=== PATIENT | female | born 1975 | race Two or more races ===

== ENCOUNTER 2022-01-25 14:49 | Outpatient (REF) | payer OTHER, SELFPAY ==
--- NOTE | ~2022-01-25 | MM_ITS ---
EXAMINATION: MM SCREENING DIGITAL BREAST TOMOSYNTHESIS, BILATERAL CLINICAL INFORMATION: Screening. Asymptomatic. The lifetime risk of breast cancer based on the Tyrer-Cuzick Model is 8%. COMPARISON: Mammography: 03/02/2018 (baseline) TECHNIQUE: Digital breast tomosynthesis is performed in both the craniocaudal and mediolateral oblique views along with computer-aided detection (CAD). Synthesized 2D images are generated from the tomosynthesis. FINDINGS: There are scattered areas of fibroglandular density (ACR BI-RADS breast composition Category b). There are no significant masses, abnormal calcifications, or other abnormalities. No significant changes from prior baseline exam. The axilla and skin contours are unremarkable. MM/MM tomosynthesis screening BI IMPRESSION: No mammographic evidence of malignancy. ASSESSMENT: BI-RADS 1: Negative RECOMMENDATION: Routine annual mammography screening. This patient's information was entered into a reminder system with a target due date for their next mammogram.
== END 2022-01-25 14:50 | disposition home or self-care (01) ==
LOC: HO.MAMMO 14:49
PROVIDERS: PCP Internal Medicine; Visit Provider Nurse Practitioner Family
DX: Z12.31 Encounter for screening mammogram for malignant neoplasm of breast (principal)
CPT/HCPCS: 77063; 77067

== ENCOUNTER 2023-01-11 13:01 | Emergency (ER) | payer OTHER, SELFPAY ==
--- NOTE | ~2023-01-11 | XR_ITS ---
EXAMINATION: XR SHOULDER, RIGHT CLINICAL INFORMATION: Right shoulder pain COMPARISON: None available. TECHNIQUE: AP external rotation, Grashey, scapular Y, and axillary views of the right shoulder. FINDINGS: There is osseous spurring and subchondral cystic change in the greater tuberosity suggestive of an arthritic process. No fracture, dislocation or destructive lesion. The glenohumeral joint appears preserved. XR/XR shoulder RT min 2V IMPRESSION: Degenerative spurring seen at the insertion of the supraspinatus tendon.
[2023-01-11 13:10] VITALS: BP 152/94; PULSE 103; RESP 18; TEMP 36.7; O2SAT 100; BMI 36.8
--- NOTE | 2023-01-11 13:10 | ECG_ITS ---
Test Reason : shoulder pain Blood Pressure : / mmHG Vent. Rate : 089 BPM Atrial Rate : 089 BPM P-R Int : 146 ms QRS Dur : 086 ms QT Int : 358 ms P-R-T Axes : 044 026 024 degrees QTc Int : 435 ms Normal sinus rhythm Normal ECG No previous ECGs available Referred By: Peyton Michele Electronically Signed By:ANICETO DELUNA MD
--- NOTE | 2023-01-11 13:10 | ED_ITS ---
HPI - Extremity Injury (Upper) General Chief Complaint: Neck Pain/Injury Stated Complaint: Right shoulder/arm pain Time Seen by Provider: 01/11/23 13:16 Source: patient, family and diplomatic interpreter/translator Mode of arrival: ambulatory Limitations: no limitations History of Present Illness HPI narrative: 47-year-old female with pmhx significant for GERD presents to the ED today for evaluation of right neck and shoulder pain x1 day upon returning home from work yesterday. Pain now radiating down her right arm. 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 Rates pain intensity 7/10. Pain is exacerbated with movement of the RUE. Took Motrin with minimal relief, last dose last night. Denies injury/ fall/ trauma. Reports similar symptoms years ago in her left neck/shoulder that have resolved w/ meds. Denies fever/chills, diaphoresis, vision changes, MCMAHAN, dizziness, back pain, chest pain, SOB, numbness/tingling/weakness to the UEs. Denies saddle anesthesia or bowel/bladder incontinence or retention. Denies IVDU. Related Data Home Medications Medication Instructions Recorded Confirmed omeprazole 20 mg capsule,delayed 20 mg PO DAILY 01/04/22 01/04/22 release Previous Rx's Medication Instructions Recorded lidocaine 5 % topical patch 1 patch topical DAILY #15 ea 01/11/23 (Lidoderm) naproxen 500 mg tablet 500 mg PO Q8-12H PRN pain (scale 01/11/23 score 4-6) #20 tabs prednisone 50 mg tablet 50 mg PO DAILY 5 days #5 tabs 01/11/23 Allergies Allergy/AdvReac Type Severity Reaction Status Date / Time No Known Allergies Allergy Verified 01/11/23 13:13 Review of Systems Review of Systems: Constitutional: No fever, chills, fatigue, night sweats, weight changes ENT/Mouth: No ear pain, hearing loss, nasal congestion, sinus pain, rhinorrhea, sore throat Eyes: No eye pain, swelling, redness, vision changes, discharge Cardio: No chest pain, palpitations, KISER, orthopnea, peripheral edema Pulm: No SOB, cough, sputum, wheezing, dyspnea, hemoptysis GI: No nausea, vomiting, hematemesis, abdominal pain, diarrhea, constipation, hematochezia, melena : No irregular bleeding, dysuria, frequency, urgency, hesitancy, hematuria, flank pain, urinary flow changes, urinary incontinence or retention MSK: No back pain, joint pain, myalgias, + right neck and shoulder pain Skin: No lesions, rashes Neuro: No weakness, numbness, paresthesias, LOC, dizziness, headache All other systems reviewed and are negative. [facility] Past Medical History Attestation statement: The following information was validated with the patient. Source: old records reviewed and nursing notes reviewed Surgical History History of excision of mass Family History Family History Father No problems noted. Mother Diabetes Hypertension Sister In good health Son In good health Daughter In good health Social History Social History Housing: House Patient Tobacco Use Status: Never used Tobacco Advance Directives: No Advance Directives Information Provided: Yes service: No Current occupational status: employed Cognitive needs: No Hearing needs: No Vision needs: Yes Physical Exam Vital Signs: Vital Signs: Last Vital Signs Temp 98.1 F 01/11/23 13:10 Pulse 103 H 01/11/23 13:10 Resp 18 01/11/23 13:10 BP 152/94 H 01/11/23 13:10 Pulse Ox 100 01/11/23 13:10 O2 Del Method Room Air 01/11/23 13:10 BMI result Body Mass Index 36.8 Const: General: cooperative, comfortable, no acute distress, alert and awake Nutritional Appearance: obese Orientation/consciousness: patient oriented x3 Limitations: no limitations HEENT: Head: Yes normal to inspection Ears: hearing grossly normal bilaterally Eyes: General: appearance normal, both eyes and all related structures Conjunctivae: conjunctivae normal Sclerae: sclerae normal Pupils: Equal, round and reactive pupils present Neck: Other: + tenderness to palpation over the right cervical paraspinal muscles and right trapezius muscle. No midline cervical spinous tenderness or step-off deformity. Full ROM intact to C-spine. Neck: Yes normal visual inspection, Yes no lymphadenopathy and Yes no meningeal signs Resp: Effort & Inspection: normal respiratory effort and able to speak in complete sentences Auscultation: clear to auscultation bilaterally Cardio: Jugular venous distension: no JVD Rate: regular rate Rhythm: regular rhythm Peripheral pulses: radial pulses present and dorsalis pedis present GI: Inspection: Yes normal to inspection Back/Spine/Pelvis: Other: No midline spinous tenderness. No thoracic or lumbar paraspinal tenderness to palpation. No step-off deformity. Skin: General skin exam: no rashes or lesions noted Neuro: Other: Strength 5/5 intact throughout.?No saddle anesthesia.?Sensation intact to light touch.?Neurovascular intact distally.? General: patient oriented x3, gait normal, moves all extremities and no meningeal signs Cranial nerves: Yes CN's II-XII intact bilaterally and Yes Equal, round and reactive pupils present Extrem: Other: + full ROM intact to right shoulder, elb ow, wrist. There is pain upon adduction and abduction of right shoulder. No palpable deformity or step off. General: Yes normal to inspection and Yes full ROM Course Course Course Narrative: RME: 47yo F w/PMHx GERD, c/o right sided neck pain radiating to right shoulder and down RLE x yesterday. 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 denies weakness, CP/SOB +R trapezius and shoulder ttp. +pain w/ROM to R shoulder. Pulses WNL b/l UE EKG & XR ordered Full HPI, ROS and PE to be performed by primary ED provider. Medications Administered Discontinued Medications Generic Name Dose Route Start Last Admin Trade Name Freq PRN Reason Stop Dose Admin Diazepam 2 mg 01/11/23 13:41 01/11/23 13:49 Diazepam 2 Mg Tablet PO 01/11/23 13:42 2 mg ONCE ONE Administration Lidocaine 1 patch 01/11/23 13:41 01/11/23 13:49 Lidocaine 4 % Patch Adh..Patch TRANSDERMA 01/11/23 13:42 1 patch ONCE ONE Administration Protocol Medical Decision Making Medical Decision Making MDM Narrative: 47-year-old female with pmhx significant for GERD presents to the ED today for evaluation of right neck and shoulder pain x1 day upon returning home from work yesterday. Patient is nontoxic appearing and in NAD. On exam, there is tenderness to palpation over the right cervical paraspinal muscles and right trapezius muscle. No midline spinous tenderness or step-off deformity. Full ROM intact to C-spine. Full ROM intact to right shoulder, elbow, wrist. There is pain upon adduction and abduction of right shoulder. No palpable deformity or step off. Ambulating with steady gait. NV intact distally. Clinical concern for MSK sprain/strain, torticollis, fracture, subluxation, dislocation, tendinitis, osteoarthritis, cervical radiculopathy. Unlikely rotator cuff injury, threat to limb, cord compression. Right shoulder xray ordered in triage. Plan for pain control, imaging review and re-evaluation. Differential Diagnosis Differential Diagnoses: The differential diagnosis associated with the presentation includes As above. Admission/Observation Not indicated. Independent Interpretation I performed an independent interpretation of an: EKG and Plain X-Ray Interpretation: EKG showing normal sinus rhythm with a rate of 89 beats per minute, QT 358, QTC 435, no acute ischemic changes or ST elevations. XR right shoulder without acute fracture or dislocation, agree with radiologist's interpretation. Radiology Impression Discussion of test interpretation with radiology: I have reviewed the radiologist's reading. Radiologist Impression: XR shoulder RT min 2V IMPRESSION: Degenerative spurring seen at the insertion of the supraspinatus tendon. Independent Historian Clinical information obtained from an independent historian. History obtained from or confirmed by: Spouse External Record Review External record reviewed: Inpatient record Prescription Management I considered prescription management with: Pain Medication Critical Care Time Critical Care Time Critical Care Time: No Discharge Plan Discharge Clinical Impression: Arthritis of shoulder region, right Patient Disposition: Home, Self-Care Instructions: Osteoarthritis (ED) Additional Instructions: The xray of your right shoulder showed degenerative arthritic changes within the shoulder. This is likely the cause of your pain. The treatment for this is pain control and ortho follow up. Naproxen is an anti-inflammatory that has been sent to your pharmacy. Take this as needed for pain control. To not take this medication with other anti-inflammatories such as ibuprofen as this may increase risk of GI bleed. Lidoderm patches have been sent to your pharmacy. You may apply these to her shoulder to help with pain control. Prednisone as a steroid that has been sent to your pharmacy. Take this over the next 5 days to help with inflammation. A referral to an orthopedic doctor has been provided to you. You may call them to make an appointment. They will not call you. Additionally follow-up with your primary care provider as needed. If her symptoms persist or worsen, return to the emergency department. In the case of an emergency call 911. La radiograf?a de cruz hombro derecho mostr? cambios artr?ticos degenerativos dentro del hombro. Probablemente esta sea la causa de cruz dolor. El tratamiento para esto es el control del dolor y el seguimiento ortop?dico. El naproxeno es un antiinflamatorio que le mcdowell enviado a cruz farmacia. T?hess seg?n sea necesario para controlar el dolor. No lorena gucci medicamento con otros antiinflamatorios vivian el ibuprofeno, ya que puede aumentar el riesgo de hemorragia gastrointestinal. Los parches de Lidoderm mcdowell sido enviados a cruz farmacia. Puede aplicarlos en cruz hombro para ayudar a controlar el dolor. Prednisona vivian esteroide que mcmahan sido enviada a cruz farmacia. T?hess moe los pr?ximos 5 d?as para ayudar con la inflamaci?n. Se le mcmahan proporcionado hanane derivaci?n a un m?dico ortop?dico. Puede llamarlos para programar hanane tamara. No te llamar?n. Adem?s, gisel un seguimiento con cruz proveedor de atenci?n primaria seg?n sea necesario. Si goran s?ntomas persisten o empeoran, regrese al departamento de emergencias. En corina de emergencia llame al 911. Prescriptions: New naproxen 500 mg tablet 500 mg PO Q8-12H PRN (Reason: pain (scale score 4-6)) Qty: 20 0RF prednisone 50 mg tablet 50 mg PO DAILY 5 Days Qty: 5 0RF lidocaine [Lidoderm] 5 % adhesive patch,medicated 1 patch topical DAILY Qty: 15 0RF Rx Instructions: leave on most painful area for up to 12 hrs No Action omeprazole 20 mg capsule,delayed release(DR/EC) 20 mg PO DAILY Referrals: [facility] [Provider Group] Stand Alone Forms: Work/School Release Interventions: ED Discharge Assessment Last Done: 01/11/23 15:21 Discharge Date/Time: 01/11/23 15:23
[2023-01-11] MEDS: diazePAM 2 MG TABLET PO (13:49)
[2023-01-11] MEDS: Lidocaine 4 % Patch ADH..PATCH 1 PATCH TRANSDERMA (13:49)
--- NOTE | 2023-01-11 15:21 | PC.NURSE ---
pt verbalized improvement in pain after medication/lidocaine patch.
== END 2023-01-11 15:23 | disposition home or self-care (01) ==
PROVIDERS: Emergency Provider Emergency Medicine; PCP Internal Medicine
DX: M19.011 Primary osteoarthritis, right shoulder (principal); M54.2 Cervicalgia; M25.511 Pain in right shoulder; Z79.899 Other long term (current) drug therapy
CPT/HCPCS: 73030; 93005; 99283

== ENCOUNTER 2023-01-25 09:52 | Outpatient (AMB) | payer OTHER, SELFPAY ==
--- NOTE | 2023-01-25 09:57 | A.OFFVIS_ITS ---
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 She states that her pain has gotten a little worse worse this past week. Patient reports she was prescribed lidocaine patches which don't provide her with relief. 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 She states she has intermittent pain in her right shoulder which has been a bit worse since last week. Her pain is aggravated with activities lifting. She denies any pain at night. She was prescribed lidocaine patches which did not provide her any relief. 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 She does not have a history of diabetes. [facility] Surgical History History of excision of mass Family History Father No problems noted. Mother Diabetes Hypertension Sister In good health Son In good health Daughter In good health Social History Housing: House Patient Tobacco Use Status: Never used Tobacco service: No Current occupational status: employed Cognitive needs: No Hearing needs: No Vision needs: Yes Review of Systems Const All systems reviewed & are unremarkable except as noted in HPI and below Physical Exam Vital Signs: BMI result Body Mass Index 36.6 Const General: cooperative, healthy appearing, comfortable, no acute distress, well developed and alert Orientation/consciousness: patient oriented x3 HEENT Head: Yes normal to inspection, Yes normocephalic and Yes atraumatic Eyes General: appearance normal, both eyes and all related structures Resp Effort & Inspection: normal respiratory effort and able to speak in complete sentences Cardio Rate: regular rate Peripheral pulses: Peripheral pulses 2+ throughout GI Palpation (GI): Soft to palpation Skin Lesions: no lesions Rashes: no rashes Neuro General: patient oriented x3 Extrem Other: Right shoulder normal to inspection. Tenderness over the bicipital groove and along the deltoid region of the shoulder. Forward flexion to 175, external rotation to 90, internal rotation to S1. Pain with RTC strength testing. Positive Pierre. NVI. Office Procedures Joint Injection/Drain Joint Injection/Drain Primary Site: right shoulder Prep: site was prepped using aseptic technique, ethochloride spray was applied and injection warnings given Injected: 80 mg of, DepoMedrol, with 8 mL of, 1% plain lidocaine and in the subcromial space Approach Used: posterolateral Procedure: The patient tolerated the procedure well and there was some relief with the local anesthesia Coding 90547 - Glenohumeral/Tronchanteric Bursa/Intraarticular Procedure code (CPT) selection complete Results Reviewed Results Reviewed: xrays of the right shoulder obtained on 01/11/23 show arthritic changes within the ac joint Assessment & Plan Assessment & Plan (1) Tendinitis of right rotator cuff: Code(s): M75.81 - Other shoulder lesions, right shoulder Plan We discussed options today which include steroid injection. They did consent to move forward with the right shoulder injection, which was tolerated well. She was also referred to a course of physical therapy in the office today. I recommended rest, ice and elevation and OTC anti-inflammatories PRN for discomfort. If symptoms persist or worsens over the next 6-8 weeks, patient will contact the office, otherwise follow-up as needed. Orders: Orders PT Evaluation and Treatment Today M75.81 - Other shoulder lesions, right shoulder Patient Instructions: Scribed for Gigi Darden PA-C, by Adrian Caldwell biomedical scientist, on 01/25/2023 at 10:00 AM EST. Gigi Cruz PA-C, have personally reviewed and agree with the information entered by the scribe. Coding Level of Care Code New Pt Level 3 (58455) Diagnoses Tendinitis of right rotator cuff M75.81 CPT Codes Coding - Joint 7: 94076 - Glenohumeral/Tronchanteric Bursa/Intraarticular ([id number])
[2023-01-25 10:01] VITALS: BMI 36.6
== END 2023-01-25 10:35 | disposition home or self-care (01) ==
PROVIDERS: PCP Internal Medicine; Visit Provider Physician Assistant
DX: M75.81 Other shoulder lesions, right shoulder (principal)
CPT/HCPCS: 20610; 99204

== ENCOUNTER → 2023-01-25 09:52 | Outpatient (BNVA) | payer OTHER, SELFPAY | PROVIDERS: PCP Internal Medicine; Visit Provider Physician Assistant | DX: M75.81 Other shoulder lesions, right shoulder (principal) | CPT/HCPCS: 20610; 99202; J1040 ==

== ENCOUNTER 2023-02-08 14:25 | Outpatient (AMB) | payer OTHER, SELFPAY ==
[2023-02-08 14:27] VITALS: BP 120/82; BMI 36.5
--- NOTE | 2023-02-08 14:27 | A.OFFPC_ITS ---
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: No Accompanied by: Spouse Allergies No Known Allergies Allergy (Verified 02/08/23 14:43) Medication List - Last Reconciled 02/08/23 by Lizzie Michele MD omeprazole 20 mg PO DAILY Tobacco use date assessed: 02/08/23 Dental Screening Dental Screen Date: 02/08/23 Did you have a dental visit in the last 12 months?: No Did you have a dental problem in the last 6 months where you did not have access to dental care?: No Was dental information given to patient?: Patient has dentist HPI HPI Comments History of Present Illness Details This is a 47-year-old female that comes for her physical accompanied by . Last mammogram was 2021 and was normal. Last Pap smear was over 5 years ago and will be referred to OBGYN. Declines colonoscopy but is willing to do Cologuard and has no family history of colon cancer. No chest pain or shortness of breath. No change in bowel or bladder habits. [facility] Surgical History History of excision of mass Family History Father No problems noted. Mother Diabetes Hypertension Sister In good health Son In good health Daughter In good health Social History (Updated 02/08/23 @ 14:46 by Lizzie Michele MD) Housing: House Alcohol intake: current Alcohol intake frequency: holidays/special occasions only Alcohol type: wine Patient Tobacco Use Status: Never used Tobacco e-Cigarette/Vaping Use: Never Used Second Hand Smoke Exposure: No service: No Current occupational status: employed Current occupational exposures/hazards: No Cognitive needs: No Hearing needs: No Vision needs: Yes Questionnaire PHQ-9 Over the last 2 weeks, how often have you been bothered by any of the following problems? 1. Little interest or pleasure in doing things: not at all 2. Feeling down, depressed, or hopeless: not at all 3. Trouble falling or staying asleep, or sleeping too much: not at all 4. Feeling tired or having little energy: not at all 5. Poor appetite or overeating: not at all 6. Feeling bad about yourself - or that you are a failure or have let yourself or your family down: not at all 7. Trouble concentrating on things, such as reading the newspaper or watching television: not at all 8. Moving or speaking so slowly that other people could have noticed. Or the opposite - being so fidgety or restless that you have been moving around a lot more than usual: not at all 9. Thoughts that you would be better off or of hurting yourself in some way: not at all Total score: 0 Depression Screening Interpretation: Negative Depression Screening Done: Yes 79576 - PHQ-9 Billing: Yes Source: Developed by Drs. Loi Moyer, Alessandra Weiner, Anthony Aguilar and colleagues, with an educational latisha from [employer]. Thrive Questionnaire Date Thrive assessed: 02/08/23 I am a: Patient What is your living situation today?: I have a steady place to live Within the past 12 months, did the food you bought not last and you didn't have the money to get more?: Never true Within the past 12 months, did you worry whether your food would run out before you got money to buy more?: Never true Do you have trouble paying for medicines?: No Do you have trouble getting transportation to medical appointments?: No Do you have trouble paying your heating and electricity bill?: No Do you have trouble taking care of your child, family member or friend?: No Do you have trouble with day-to-day activities such as bathing, preparing meals, shopping, managing finances, etc.?: No Are you currently unemployed and looking for a job?: No Are you interested in more education?: No Please select the resources that you would like help with: None Currently or been in a relationship where the following occur: no concerns re ported AUDIT C Alcohol Use Questionnaire (AUDIT-C) 1. How often do you have a drink containing alcohol?: Never Total Score: 0 NICOLE-7 AMB Questionnaire NICOLE-7 Date NICOLE - 7 assessed: 02/08/23 Feeling nervous, anxious, or on edge: 0 = Not at all Not being able to stop or control worryin = Not at all Worrying too much about different things: 0 = Not at all Trouble relaxin = Not at all Being so restless that it is hard to sit still: 0 = Not at all Becoming easily annoyed or irritable: 0 = Not at all Feeling afraid as if something awful might happen: 0 = Not at all Total NICOLE-7 score (0-4 normal; 5-9 mild; 10-14 moderate; 15-21 severe): 0 Source: Developed by Drs. Loi Moyer, Alessandra Weiner, Anthony Aguilar and colleagues, with an educational latisha from [employer]. NICOLE-7 Assessment Billing NICOLE-7 Assessment Tool: NICOLE-7 Assessment 08633 Review of Systems Const All systems reviewed & are unremarkable except as noted in HPI and below Eyes Reports no additional complaints, Denies change in vision and Denies other visual disturbances Card Denies chest pain at rest, Denies chest pain with activity, Denies edema, Denies irregular heart rhythm, Denies claudication, Denies dyspnea, Denies dyspnea on exertion, Denies orthopnea, Denies paroxysmal nocturnal dyspnea and Denies slow heart rate Resp Denies cough, Denies dyspnea and Denies dyspnea on exertion GI Denies abdominal pain, Denies change in bowel habits, Denies excessive flatus, Denies nausea and Denies vomiting Denies urinary incontinence, Denies urinary hesitancy and Denies urinary urgency Musc Denies abnormal gait, Denies atrophy, Denies deformity and Denies limited range of motion Skin/Breast Denies bleeding lesions, Denies changing lesions and Denies rash Neuro Denies abnormal gait, Denies behavioral changes, Denies confusion and Denies lack of coordination Psych Denies behavioral changes and Denies confusion Physical exam (Primary Care) Vital Signs: Last Vital Signs BP 120/82 02/08/23 14:27 BMI result Body Mass Index 36.5 Tobacco/Smoking Status: Tobacco use Status Tobacco use date assessed 02/08/23 02/08/23 14:38 Patient Tobacco Use Status Never used Tobacco 02/08/23 14:46 e-Cigarette/Vaping Use Never Used 02/08/23 14:46 PHQ-9: PHQ-9 Score PHQ-9: Total score 0 02/08/23 14:48 Depression Screening Interpretation: Negative Thrive Assessment: Date of Thrive Assessment Date Thrive assessed 02/08/23 02/08/23 14:40 Currently or been in a relationship where the following occur: no concerns reported Const General: No confusion Orientation/consciousness: patient oriented x3 and No confusion HENMT Head: Yes normal to inspection, Yes normocephalic and Yes atraumatic Ears: external ears normal Eyes General: appearance normal, both eyes and all related structures Eyelids: Yes eyelids normal Conjunctivae: conjunctivae normal Neck Neck: Yes normal visual inspection and Yes supple Resp Effort & Inspection: normal respiratory effort Auscultation: clear to auscultation bilaterally Cardio Jugular venous distension: no JVD Rate: regular rate Rhythm: regular rhythm Heart sounds: S1 normal heart sound present and S2 normal heart sound present GI Inspection: Yes normal to inspection Palpation (GI): Soft to palpation and nontender Auscultation: normal bowel sounds Skin General skin exam: no rashes or lesions noted Neuro General: patient oriented x3, no focal motor deficits and No confusion Extrem General: Yes full ROM Psych Appearance: grossly normal Office Procedures Flu Questionnaire Does the patient have a severe egg allergy?: No Immunizations flu vacc [id number] 6mos up(PF) 60 mcg(15 mcgx4)/0.5 mL IM syringe Performing Provider: Lizzie Michele MD [facility] Documented (not given) by: JOSE ENRIQUE Lopez on 02/08/23 14:38 Reason Not Given: Patient Refused Assessment and Plan Assessment & Plan (1) Adult general medical exam: Code(s): Z00.00 - Encounter for general adult medical examination without abnormal findings Plan: Repeat in a year. Orders: Orders Influenza [id number] Immunization Today Z23 - Encounter for immunization Comprehensive Met. Panel Today Z00.00 - Encounter for general adult medical examination without abnormal findings Complete Blood Count Auto Diff Today E66.9 - Obesity, unspecified MM screening mammo BI Today Z12.31 - Encounter for screening mammogram for malignant neoplasm of breast Lipid Panel Today Z00.00 - Encounter for general adult medical examination without abnormal findings Thyroid Stimulating Hormone Today E66.9 - Obesity, unspecified Referrals Cologuard Test Z12.11 - Encounter for screening for malignant neoplasm of colon, Z12.12 - Encounter for screening for malignant neoplasm of rectum Coding Level of Care Code Est Pt Prev Care 40-64y(84719) Diagnoses Adult general medical exam Z00.00 Additional Codes NICOLE-7 Assessment Billing - NICOLE-7 Assessment Tool: NICOLE-7 Assessment 14243 ([id number]) Time Spent (min) 31
== END 2023-02-08 14:54 | disposition home or self-care (01) ==
PROVIDERS: Visit Provider Internal Medicine
DX: Z00.00 Encounter for general adult medical examination without abnormal findings (principal)
CPT/HCPCS: 99396

== ENCOUNTER 2023-02-23 08:45 | Outpatient (REF) | payer OTHER, SELFPAY ==
[2023-02-23 08:58] LABS: MANUAL DIFF FLAG NO
[2023-02-23 09:35] LABS: Basophils Absolute Auto 0.1 X10*3/uL (0.0-0.2); Basophils Percent Auto 0.6 % (0-2); Eosinophils Absolute Auto 0.2 X10*3/uL (0.0-0.4); Eosinophils Percent Auto 2.9 % (0-4); Hematocrit 39.2 % (37.0-47.0); Hemoglobin 12.6 g/dl (12.0-16.0); Imm Gran Abs Auto 0.03 X10*3/uL (0.00-0.03); Imm Gran Pct Auto 0.4 % (0.0-0.4); Lymphocytes Absolute Auto 2.9 X10*3/uL (1.2-4.9); Mean Corpuscular HGB Conc 32.1 g/dl (31.0-35.0); Mean Corpuscular Hemoglobin 26.2 pg (27.0-33.0); Mean Corpuscular Volume 81.5 fL (80.0-98.0); Mean Platelet Volume 9.7 fL (9.4-12.3); Monocytes Absolute Auto 0.5 X10*3/uL (0.1-1.2); Monocytes Percent Auto 6.6 % (2-11); Neutrophils Absolute Auto 4.5 x10*3/uL (2.0-8.3); Neutrophils Percent Auto 54.5 % (45-73); Platelet Count 265 X10*3/uL (160-400); Red Blood Count 4.81 X10*6/uL (4.20-5.50); Red Cell Distribution Width 15.2 % (11.0-16.0); White Blood Count 8.2 X10*3/uL (4.8-10.8)
[2023-02-23 10:22] LABS: Alanine Aminotransferase 25 U/L (0-31); Albumin Level 4.1 g/dL (3.5-5.0); Alkaline Phosphatase 82 U/L (39-117); Anion Gap 12 (12-20); Aspartate Amino Transferase 21 U/L (5-31); Bilirubin Total 0.3 mg/dL (0.0-1.0); Blood Urea Nitrogen 14 mg/dL (9-16); Calcium 9.4 mg/dL (8.4-10.2); Carbon Dioxide 23 mmol/L (22-29); Chloride 109 mmol/L (96-108); Cholesterol 197 mg/dL (<200); Estimated Glomerular Filt Rate > 60; Glucose Random 104 mg/dL (60-115); HDL Cholesterol 48 mg/dL (>40); LDL Cholesterol Calculated 119 mg/dL (<100); Potassium 4.1 mmol/L (3.3-5.1); Sodium 140 mmol/L (135-145); Total Protein 7.6 g/dL (6.5-8.0); Triglycerides 150 mg/dL (<150)
[2023-02-23 11:13] LABS: Thyroid Stimulating Hormone 2.53 uIU/mL (0.32-4.0)
== END 2023-02-23 08:46 | disposition home or self-care (01) ==
LOC: HO.LAB 08:45
PROVIDERS: PCP Internal Medicine; Visit Provider Internal Medicine
DX: Z00.00 Encounter for general adult medical examination without abnormal findings (principal); E66.9 Obesity, unspecified
CPT/HCPCS: 36415; 80053; 80061; 84443; 85025

== ENCOUNTER 2023-03-08 14:00 | Outpatient (RCR) | payer OTHER, SELFPAY ==
--- NOTE | 2023-02-17 09:52 | MHC.PT.EP ---
[facility] [place] Office [place] Office [place] Office [address] [phone] F: [phone] F: [phone] F: [phone] F: [phone] Physical Therapy Plan of Care Date of Evaluation: 02/15/23 Date of Surgery: Diagnosis: R shoulder pain. Assessment: Pt is a 47 year old right hand dominant female who is referred to PT for eval and treat of R shoulder pain which is resulting in decreased tolerance for work and home related tasks of vacuum, scrubbing, folding laundry, dressing her hair and reaching high shelves secondary to mild decreased R shoulder ROM, decreased R shoulder strength, TTP of anterior R shoulder, decreased shoulder posture and pain. Pt is deemed an appropriate candidate to receive skilled PT services to address their physical impairments in order to improve their functional ability. Frequency and Duration: The patient will be seen 2 x/ wk x 5 wks. Short Term Goals: Initiate home program improve baseline pain to < 4/10; initial: 6/10. [employer] Supervisor Goals: I with home program. Improve SPADI outcome measure by at least 13 pints. Pt will be able to reach high shelves with managed Sx. Pt will dress pullovers w/o difficulty. Treatment Plan: Modalities to reduce pain, spasms and effusion. Manual therapy to restore motion and function. Therapeutic exercise to improve strength and flexibility. Neuromuscular re-education for posture and balance. Therapeutic activities to return to functional activities of daily living. Electronically signed by: Titus Ambrosio PT. Please sign and return to therapist. Thank you for your referral.
--- NOTE | 2023-04-14 07:49 | MHC.PT.DC ---
[facility] [place] Office [place] Office [place] Office [address] Judit Nelson [address] [phone] F: [phone] F: [phone] F: [phone] F: [phone] Physical Therapy Discharge Report Diagnosis: R shoulder pain. Date of Surgery: Date of Evaluation: 02/15/23 Date of Discharge: 04/14/23 Treatments to Date: 5 Cancellations to Date: 1 No Shows to Date: 1 Discharge Status: Patient Elected to Stop Discharge Summary: Pt demonstrated some improvements before electing to end therapy. Electronically signed by: Titus Ambrosio PT. Please sign and return to therapist. Thank you for your referral.
== END 2023-04-14 07:48 | disposition home or self-care (01) ==
LOC: HO.PT 14:00
PROVIDERS: PCP Internal Medicine; Visit Provider Physician Assistant
DX: M75.81 Other shoulder lesions, right shoulder (principal)
CPT/HCPCS: 97110; 97140; 97161; 97530

== ENCOUNTER 2023-03-15 14:42 | Outpatient (REF) | payer OTHER, SELFPAY | END 2023-03-15 14:43 | disposition home or self-care (01) | LOC: HO.MAMMO 14:42 | PROVIDERS: PCP Internal Medicine; Visit Provider Internal Medicine | DX: Z12.31 Encounter for screening mammogram for malignant neoplasm of breast (principal) | CPT/HCPCS: 77063; 77067 ==

== ENCOUNTER → 2023-03-15 14:45 | Outpatient (BNV) | payer OTHER, SELFPAY | PROVIDERS: PCP Internal Medicine; Visit Provider Radiology Diagnostic Radiology | DX: Z12.31 Encounter for screening mammogram for malignant neoplasm of breast (principal) | CPT/HCPCS: 77063; 77067 ==

== ENCOUNTER 2024-02-14 12:39 | Outpatient (AMB) | payer OTHER, SELFPAY ==
[2024-02-14 12:52] VITALS: BP 142/90; BMI 35.8
--- NOTE | 2024-02-14 12:52 | A.OFFPC_ITS ---
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 Accompanied by: Self / Same As Patient Allergies No Known Allergies Allergy (Verified 02/14/24 13:28) Medication List - Last Reconciled 02/14/24 by Lizzie Michele MD omeprazole 20 mg PO DAILY Tobacco use date assessed: 02/14/24 Dental Screening Dental Screen Date: 02/14/24 Did you have a dental visit in the last 12 months?: No Did you have a dental problem in the last 6 months where you did not have access to dental care?: No Was dental information given to patient?: Patient has dentist HPI HPI Comments History of Present Illness Details The patient is a 48-year-old female presenting for an annual physical examination. She has a history of obesity, classified as Stage 2, with a Body Mass Index (BMI) of 35. She reports engaging in previous attempts at weight management, which included healthy eating and walking; however, she ceased structured exercise many years ago. Currently, she periodically monitors her dietary intake but finds consistently maintaining these habits challenging due to work commitments. Obesity poses a risk for her cardiovascular health, and she has been advised on portion control and choosing beverages with reduced sugar content. The patient also presents with prehypertension, with a recorded blood pressure of 142/90 mmHg during this visit. She denies any symptoms of depression. She does not report any past medical intervention for her blood pressure. Her blood pressure will be reassessed in three weeks to determine if antihypertensive medications are necessary. Her medication regimen includes only Omeprazole for gastric reflux symptoms, which she has tolerated well without adverse reactions. No previous colorectal screening has been performed; however, she is now over 46 years old and requires screening through either colonoscopy or a home-based test such as Cologuard. She notes a past surgical intervention for an inflamed vein in the left thigh, which was many years prior. The patient consumes alcoholic beverages, specifically wine, only on special occasions. She denies smoking or using recreational drugs. - Blood pressure recheck in three weeks to monitor for hypertension. - Scheduled mammography in February ied. - Referral for Pap smear considering it' s been approximately five years since the last screening. - Colon cancer screening planned with a Cologuard kit sent to her home. - Advise on nutritional intake and exerc ise for weight management focusing on portion control, including guidance on sugar intake limitation in beverages. PFSH Surgical History History of excision of mass Family History Father No problems noted. Mother Diabetes Hypertension Sister In good health Son In good health Daughter In good health Social History Housing: House Alcohol intake: current Alcohol intake frequency: holidays/special occasions only Alcohol type: wine Patient Tobacco Use Status: Never used Tobacco e-Cigarette/Vaping Use: Never Used Second Hand Smoke Exposure: No service: No Current occupational status: employed Current occupational exposures/hazards: No Cognitive needs: No Hearing needs: No Vision needs: Yes Questionnaire PHQ-9 Over the last 2 weeks, how often have you been bothered by any of the following problems? 1. Little interest or pleasure in doing things: not at all 2. Feeling down, depressed, or hopeless: not at all 3. Trouble falling or staying asleep, or sleeping too much: not at all 4. Feeling tired or having little energy: several days 5. Poor appetite or overeating: not at all 6. Feeling bad about yourself - or that you are a failure or have let yourself or your family down: not at all 7. Trouble concentrating on things, such as reading the newspaper or watching television: not at all 8. Moving or speaking so slowly that other people could have noticed. Or the opposite - being so fidgety or restless that you have been moving around a lot more than usual: not at all 9. Thoughts that you would be better off or of hurting yourself in some way: not at all Total score: 1 Depression Screening Interpretation: Negative Depression Screening Done: Yes 11950 - PHQ-9 Billing: Yes Source: Developed by Drs. Loi Moyer, Alessandra Weiner, Anthony Aguilar and colleagues, with an educational latisha from [email or web address]. Thrive Questionnaire Date Thrive assessed: 02/12/24 I am a: Patient What is your living situation today?: I have a steady place to live Within the past 12 months, did the food you bought not last and you didn't have the money to get more?: Never true Within the past 12 months, did you worry whether your food would run out before you got money to buy more?: Never true Do you have trouble paying for medicines?: No Do you have trouble getting transportation to medical appointments?: No Do you have trouble paying your heating and electricity bill?: No Do you have trouble taking care of your child, family member or friend?: No Do you have trouble with day-to-day activities such as bathing, preparing meals, shopping, managing finances, etc.?: No Are you currently unemployed and looking for a job?: No Are you interested in more education?: I choose not to answer this question Please select the resources that you would like help with: None Currently or been in a relationship where the following occur: No concerns reported THRIVE Score: 0 AUDIT C Alcohol Use Questionnaire (AUDIT-C) 1. How often do you have a drink containing alcohol?: Never Total Score: 0 Score Reviewed/Action Taken: No NICOLE-7 AMB Questionnaire NICOLE-7 Date NICOLE - 7 assessed: 02/14/24 Feeling nervous, anxious, or on edge: 0 = Not at all Not being able to stop or control worryin = Not at all Worrying too much about different things: 1 = Several days Trouble relaxin = Not at all Being so restless that it is hard to sit still: 0 = Not at all Becoming easily annoyed or irritable: 0 = Not at all Feeling afraid as if something awful might happen: 0 = Not at all Total NICOLE-7 score (0-4 normal; 5-9 mild; 10-14 moderate; 15-21 severe): 1 Source: Developed by Drs. Loi Moyer, Alessandra Weiner, Anthony Aguilar and colleagues, with an educational latisha from [email or web address]. NICOLE-7 Assessment Billing NICOLE-7 Assessment Tool: NICOLE-7 Assessment 67994 Review of Systems Const Details: - Cardiovascular: Reports occasional chest pains localized in the anterior and posterior thoracic area, relieved by [id number] analgesics. - Breasts: Reports intermittent pain across the breast and surrounding thoracic region. - Gastrointestinal: Denies changes in bowel habits, confirms good urinary and bowel function. - Mental Health: Denies symptoms of depression. Physical exam (Primary Care) Vital Signs: Last Vital Signs BP 142/90 H 02/14/24 12:52 BMI result Body Mass Index 35.8 BMI Assessment/Plan discussion: High BMI High, discussed plan: lifestyle, weight reduction, dietary and physical activity Tobacco/Smoking Status: Tobacco use Status Tobacco use date assessed 02/14/24 02/14/24 12:55 Patient Tobacco Use Status Never used Tobacco 02/14/24 12:55 e-Cigarette/Vaping Use Never Used 02/14/24 12:55 PHQ-9: PHQ-9 Score PHQ-9: Total score 1 02/14/24 13:32 Depression Screening Interpretation: Negative Thrive Assessment: Date of Thrive Assessment Date Thrive assessed 02/12/24 02/14/24 12:55 Currently or been in a relationship where the following occur: No concerns reported Const Other: General: Cooperative, healthy appearing, comfortable, no acute distress and well developed Orientation: Patient oriented x3 Limitations: No limitations Head: Normal to inspection Ears: Hearing grossly normal bilaterally Nose: Normal external nose present Face and sinus: Normal facial exam Eyes: Appearance normal, both eyes and all related structures Neck: Normal visual inspection and Yes full ROM Respiratory: Normal respiratory effort and able to speak in complete sentences. Clear to auscultation bilaterally Cardiovascular: Regular rate and rhythm. Normal S1 and S2 GI: Normal to inspection. Soft to palpation and nontender Skin: No rashes or lesions noted Neuro: Patient oriented x3 Extremities: Normal to inspection Office Procedures Flu Questionnaire Does the patient have a severe egg allergy?: No Immunizations Fluarix Triv [id number] (PF) 45 mcg (15 mcg x 3)/0.5 mL IM syringe Performing Provider: Lizzie Michele MD [place] [facility] Documented (not given) by: JOSE ENRIQUE Lopez on 02/14/24 12:56 Reason Not Given: Patient Refused Coding Level of Care Code Est Pt Level 4 (41050) Est Pt Prev Care 40-64y(96307) Diagnoses Adult general medical exam Z00.00 Breast pain, left N64.4 Left shoulder pain M25.512 Pain of left scapula M89.8X1 Chest pain R07.9 Additional Codes NICOLE-7 Assessment Billing - NICOLE-7 Assessment Tool: NICOLE-7 Assessment 05735 ([id number]) PHQ-9 - 94936 - PHQ-9 Billing: Yes ([id number]) Time Spent (min) 35 Assessment & Plan Assessment & Plan (1) Adult general medical exam: Code(s): Z00.00 - Encounter for general adult medical examination without abnormal findings Category: Medical (2) Breast pain, left: Code(s): N64.4 - Mastodynia Category: Medical (3) Left shoulder pain: Code(s): M25.512 - Pain in left shoulder Category: Medical (4) Pain of left scapula: Code(s): M89.8X1 - Other specified disorders of bone, shoulder Category: Medical (5) Chest pain: Code(s): R07.9 - Chest pain, unspecified Category: Medical Plan - Prehypertension: Monitor blood pressure and reassess in three weeks; initiate antihypertensive medication if necessary. - Stage 2 Obesity: Maintain focus on diet and exercise; implement specific dietary guidelines including portion control and sugar intake monitoring; r ecommend smaller dishware as a strategy for portion control. - Gastroesophageal reflux disease GERD): Continue current Omeprazole treatment. - Colorectal cancer screening: Encourage compliance with Cologuard kit instructions. - Pain management: Explore musculoskeletal causes for chest and back pain, consider potential breast origin; proceed with diagnostic mammography considering current complaint of pain. - Gynecological screening: Arrange Pap smear through gynecology referral, noting last exam was five years prior. Patient was informed and verbally consented to the use of an ambient scribe for clinic note documentation during this visit. During this visit, I discussed the need for more closely monitoring the blood pressure due to its borderline elevation and advised a follow-up check to determine the necessity of initiating pharmacotherapy. We reviewed the patient's weight management goals and strategies, emphasizing diet modification and a gradual increase in physical activity suited to her lifestyle, such as walking at work. We went over the importance of adhering to regular screenings, particularly for colorectal cancer due to her age, and she agreed to complete the Cologuard test as a non-invasive option. We also reviewed her periodic pain symptoms in the thoracic region, acknowledging it may have a musculoskeletal or breast origin, and ordered an electrocardiogram. The importance of preventative care and health maintenance, such as the Pap smear, was affirmed, and she consented to a referral for this screening. I emphasized the importance of staying attentive to portion control, reducing sugary beverages, using smaller plates, and maintaining regular physical examination intervals. Orders: Orders Comprehensive [place]. Panel Fast Today E66.9 - Obesity, unspecified ECG 12 lead EKG Today R07.9 - Chest pain, unspecified XR scapula LT Today M89.8X1 - Other specified disorders of bone, shoulder MM diagnostic mammo BI Today N64.4 - Mastodynia Influenza [id number] Immunization Today Z23 - Encounter for immunization Lipid Panel Today E66.9 - Obesity, unspecified, E78.5 - Hyperlipidemia, unspecified XR shoulder LT min 2V Today M25.512 - Pain in left shoulder Referrals APPLICATION LEAD Referral Z12.4 - Encounter for screening for malignant neoplasm of cervix Cologuard Test Z12.11 - Encounter for screening for malignant neoplasm of colon, Z12.12 - Encounter for screening for malignant neoplasm of rectum Patient Instructions: - Monitor and log your blood pressure at home; return for a recheck in three weeks. - Follow the dietary recommendations for portion control and reduced sugar intake in beverages. - Pursue regular physical activity suited to your daily routine, such as walking. - Follow the instructions for the Cologuard kit for colorectal screening when it arrives. - Schedule a gynecological appointment for a Pap smear. - Return to the clinic if chest or breast pain increases or new symptoms arise. - Adhere to the Omeprazole regimen as prescribed.
== END 2024-02-14 13:45 | disposition home or self-care (01) ==
PROVIDERS: PCP Internal Medicine; Visit Provider Internal Medicine
DX: Z00.00 Encounter for general adult medical examination without abnormal findings (principal); N64.4 Mastodynia; M25.512 Pain in left shoulder; M89.8X1 Other specified disorders of bone, shoulder; R07.9 Chest pain, unspecified

== ENCOUNTER → 2024-02-14 12:39 | Outpatient (BNVA) | payer OTHER, SELFPAY | PROVIDERS: PCP Internal Medicine; Visit Provider Internal Medicine | DX: Z00.00 Encounter for general adult medical examination without abnormal findings (principal); E66.812 Obesity, class 2; G21.9 Secondary parkinsonism, unspecified; N64.4 Mastodynia; M25.512 Pain in left shoulder; M89.8X1 Other specified disorders of bone, shoulder; R07.9 Chest pain, unspecified; E78.5 Hyperlipidemia, unspecified; Z68.35 Body mass index [BMI] 35.0-35.9, adult; Z28.21 Immunization not carried out because of patient refusal | CPT/HCPCS: 96127; 99212; 99396 ==

== ENCOUNTER → 2024-04-02 10:15 | Outpatient (BNV) | payer OTHER, SELFPAY | PROVIDERS: PCP Internal Medicine; Visit Provider Internal Medicine | DX: N64.4 Mastodynia (principal) | CPT/HCPCS: 76642; 77062; 77066 ==